=== PATIENT | male | born 1960 | race Caucasian/White ===

== ENCOUNTER 2020-05-24 18:17 | Emergency (ER) | payer OTHER ==
[~2020-05-24] VITALS: Ht 193 cm; Wt 133.8 kg
[2020-05-24] MEDS ORDERED: DIOVAN160 M1 (18:45)
[2020-05-24] MEDS ORDERED: AZOR 10-20 MG1 EACH (18:46)
[2020-05-24] MEDS ORDERED: CARDURA1 MG (18:46)
== END 2020-05-24 21:31 | disposition home or self-care (01) ==
LOC: ER 18:17
DX: S00.83XA Contusion of other part of head, initial encounter (principal); W18.39XA Other fall on same level, initial encounter; Y93.89 Activity, other specified; Y92.488 Other paved roadways as the place of occurrence of the external cause; Y99.8 Other external cause status

== ENCOUNTER 2023-09-11 15:32 | Emergency (ER) | payer BC ==
[~2023-09-11] VITALS: Ht 193 cm; Wt 133.8 kg
[~2023-09-11 15:32] MED LIST: AZOR 10-20 MG1 EACH; CARDURA1 MG; DIOVAN160 M1
[2023-09-11 17:23] LABS: PH,URINE 5.5 (5.0-8.0); URINE APPEARANCE Clear; URINE BILIRRUBIN Negative (NEGATIVE); URINE BLOOD Negative; URINE COLOR Yellow; URINE LEUKOCYTE Negative; URINE NITRATE Negative; URINE PROTEIN Negative (NEGATIVE)
[2023-09-11 17:27] LABS: URINE BACTERIA 13.8 uL (0.0-1933); URINE EPITHELIAL CELLS 9.4 uL (0.0-38.8); URINE RBC 6.7 uL (0.0-20.8)
[2023-09-11 17:35] LABS: URINE GLUCOSE >=1000 MG/DL (NEGATIVE)
[2023-09-11 17:58] LABS: HEMATOCRIT 44.8 % (39.0-48.0); HEMOGLOBIN 15.6 g/dL (13-16.00); MEAN CELL VOLUME 90.8 fL (80.0-100.00); MEAN CORPUSCULAR HEMOGLOBIN 31.5 pg (27.00-32.0); MEAN CORPUSCULAR HGB CONC 34.7 g/dl (32.0-36.0); PLATELET COUNT 131 K/uL (150-450); RED BLOOD COUNT 4.94 M/uL (4.00-6.00); RED CELL DISTRIBUTION WIDTH 14.6 % (11.5-14.5)
[2023-09-11 18:21] LABS: CALCIUM 9.4 mg/dL (8.5-10.1); CREATININE SERUM 1.43 mg/dL (0.70-1.30); GFR 50.27; POTASSIUM 3.72 mEq/L (3.5-5.1)
== END 2023-09-11 19:21 | disposition left against medical advice (07) ==
LOC: ER 15:42
PROVIDERS: General Practice
DX: B34.9 Viral infection, unspecified (principal); Z88.2 Allergy status to sulfonamides